=== PATIENT | male | born 1995 ===

== ENCOUNTER 2022-06-18 21:14 | Emergency (ER) | payer SELFPAY ==
[2022-06-18 23:18] VITALS: BP 119/58
--- NOTE | 2022-06-20 12:21 | Electrocardiograph Report ---
[facility] Test Date: 2022-06-18 Test Time: 23:20:02 Pat Name: SANJIV ERAZO Department: Room: Gender: M [employer]: TECH : 1995 Requested By: TOMÁS TERAN Order Number: [id number] Reading MD: Darlene Gilman Measurements Intervals [place] Rate: 60 P: 43 ID: [id number] QRS: 18 QRSD: 98 T: 23 QT: 408 QTc: 410 Interpretive Statements Sinus arrhythmia Probable left atrial enlargement No previous ECG available for comparison Electronically Signed On 06-20-2022 12:21:31 EDT by Darlene Gilman
== END 2022-06-19 09:05 | disposition left against medical advice (07) ==
LOC: ED 21:14
DX: R07.89 Other chest pain (principal); Z53.21 Procedure and treatment not carried out due to patient leaving prior to being seen by health care provider
CPT/HCPCS: 93005